=== PATIENT | male | born 1955 | race Caucasian/White ===

== ENCOUNTER 2018-01-11 08:58 | Emergency (ER) | payer OTHER ==
[2018-01-11] MEDS ORDERED: TDAP ADULT 0.5 ML INJ (BOOSTRIX) IM ONE (09:12)
--- NOTE | 2018-01-11 09:35 | EDPHY ---
H & P Time Seen by Provider: 01/11/18 09:20 HPI/ROS: CHIEF COMPLAINT: Leg injury HISTORY OF PRESENT ILLNESS: 62-year-old male presents to the emergency department with left leg pain and swelling. The patient states that he fell and injured his left leg over 1 week ago and has noticed continued swelling and now feels like his calf is "tight". No history of previous DVT. He does not have pain at rest. He has been trying to ice and elevate the area. He denies pain in his groin. Denies abdominal pain. Denies chest pain or difficulty breathing. He does have productive cough over last few days. He does not feel short of breath. Specifically denies pleuritic chest pain. No fevers or chills. No back pain. He is unsure of his last tetanus shot. REVIEW OF SYSTEMS: Constitutional: No fever, no chills. Eyes: No double or blurry vision. ENT: No sore throat. Respiratory: No cough, no shortness of breath. Cardiac: No chest pain. Gastrointestinal: No abdominal pain, vomiting or diarrhea. Genitourinary: No dysuria. Musculoskeletal: No neck or back pain. Skin: Abrasions. No rashes. Neurological: No headache. Past Medical/Surgical History: Coronary artery disease Social History: Smoking Status: Never smoked Physical Exam: General Appearance: Alert, no distress. 36.8 temperature. No apparent distress. Eyes: Pupils equal and round. Extraocular motions are all intact. ENT: Mouth: Mucous membranes moist. Respiratory: No wheezing, rhonchi, or rales, lungs are clear to auscultation. Cardiovascular: Regular rate and rhythm. Gastrointestinal: Abdomen is soft and nontender, no masses, no rebound or guarding, bowel sounds normal. Neurological: Alert and oriented x 3, cranial nerves II through XII grossly intact Skin: Abrasions noted to the anterior aspect of the left lower leg. There is some minimal surrounding redness just around the abrasion. He has swelling noted to his right calf compared to the left with some ecchymosis. He has some mild pain with palpation the posterior aspect of the calf. Really no associated pain with palpation to the anterior aspect of his left leg. Warm and dry, no rashes. Musculoskeletal: Nontender to palpate along the cervical, thoracic or lumbar spine. Neck is supple. Extremities: As above. Full range of motion of his upper lower extremities. Psychiatric: Patient is oriented X 3, there is no agitation. Constitutional: Initial Vital Signs Temperature (C) 36.8 C 01/11/18 09:02 Heart Rate 81 01/11/18 09:02 Respiratory Rate 17 01/11/18 09:02 Blood Pressure 138/93 H 01/11/18 09:02 O2 Sat (%) 94 01/11/18 09:02 O2 Delivery Mode Room Air Allergies/Adverse Reactions: No Known Allergies Allergy (Unverified 01/11/18 09:00) Home Medications: Medication Instructions Recorded Aspirin 325 mg (*) 01/11/18 Statin Med 01/11/18 Medical Decision Making - Diagnostics Imaging Results: Imaging Impressions Extremity Venous Study 01/11/18 09:29 Impression: 1. No deep vein thrombosis in the left lower extremity. 2. Cortes hematoma. Results discussed with Lyudmila Elias at 10:42 AM. Imaging: Discussed imaging studies w/ call center nurse Radiologist ED Course/Re-evaluation: 62-year-old male presents to the emergency department with concerns about possible DVT to his left leg. Patient injured himself over 1 week ago and has had increased swelling. He has mild pain associated with this. Clinically I do not think the as cellulitis. It is mildly red and non tender to palpate associated with the anterior abrasion. There is no lymphangitis. He does have swelling in his left calf. Ultrasound of the left lower extremity reveals no evidence of DVT. He does have evidence of hematoma. Patient was given wound care precautions. He will return if he develops any other concerns. Differential Diagnosis: Including but not limited to DVT, hematoma, abrasion, cellulitis - Data Points Medications Given: Discontinued Medications Diphtheria/Tetanus/Acell Pertussis (Boostrix) 0.5 ml IM .ONCE ONE Stop: 01/11/18 09:13 Last Admin: 01/11/18 09:17 Dose: 0.5 ml Departure - Departure Disposition: Home, Routine, Self-Care Clinical Impression: Contusion of left leg Qualifiers: Encounter type: initial encounter Qualified Code(s): S80.12XA - Contusion of left lower leg, initial encounter Hematoma of left lower extremity Qualifiers: Encounter type: initial encounter Qualified Code(s): S80.12XA - Contusion of left lower leg, initial encounter Condition: Good Instructions: Contusion in Adults (ED), Abrasion (ED), Acute Wounds (ED) Additional Instructions: You have no evidence of DVT on your ultrasound. You do have evidence of hematoma as discussed. Elevating your leg as discussed to help relieve swelling. Please return to the emergency department if you developed associated pain especially at rest, if he developed more redness, red streaking up your leg, fever, pain, or if you feel worse in any way. You were given a tetanus shot today in the emergency department. Please document this for your records. Referrals: Teresita Kelly MD [Primary Care Provider] - As per Instructions
[2018-01-11 10:54] VITALS: BP 146/88
== END 2018-01-11 10:54 | disposition home or self-care (01) ==
DX: S80.12XA Contusion of left lower leg, initial encounter (principal); I25.10 Atherosclerotic heart disease of native coronary artery without angina pectoris; Z23 Encounter for immunization; Z79.82 Long term (current) use of aspirin; W19.XXXA Unspecified fall, initial encounter